=== PATIENT | female | born 1980 | race Caucasian/White ===

== ENCOUNTER 2019-07-15 02:28 | Emergency (ER) | payer OTHER ==
[~2019-07-15] VITALS: Ht 162.6 cm; Wt 55.3 kg
[2019-07-15 02:30] VITALS: BP 92/59
== END 2019-07-15 03:18 | disposition home or self-care (01) ==
LOC: ED 03:09
DX: L50.9 Urticaria, unspecified (principal); T78.1XXA Other adverse food reactions, not elsewhere classified, initial encounter
CPT/HCPCS: 99282